=== PATIENT | female | born 1955 | race Caucasian/White ===

== ENCOUNTER → 2016-12-20 | Outpatient (CLI) | payer OTHER ==
[~2016-12-20] MED LIST: ASPI-557 PO; CALC-52 PO; LORA10TA62 PO; MAGN500C4 PO; MONT10TA22 PO
== END ==
LOC: WC.BC 10:24
DX: Z12.31 Encounter for screening mammogram for malignant neoplasm of breast (principal)
CPT/HCPCS: 77063; G0202